=== PATIENT | female | born 1980 | race Two or more races ===

== ENCOUNTER 2017-06-13 07:50 | Emergency (ER) | payer OTHER ==
[~2017-06-13] VITALS: Ht 170.2 cm; Wt 103.4 kg
[2017-06-13 07:53] VITALS: BP 122/87
== END 2017-06-13 10:00 | disposition home or self-care (01) ==
LOC: ED 07:50
DX: S50.812A Abrasion of left forearm, initial encounter (principal); M54.5 Low back pain; E11.9 Type 2 diabetes mellitus without complications; E07.9 Disorder of thyroid, unspecified; Z79.84 Long term (current) use of oral hypoglycemic drugs; Z88.0 Allergy status to penicillin; V49.9XXA Car occupant (driver) (passenger) injured in unspecified traffic accident, initial encounter; W22.10XA Striking against or struck by unspecified automobile airbag, initial encounter; Y93.89 Activity, other specified; Y99.8 Other external cause status; Y92.89 Other specified places as the place of occurrence of the external cause
CPT/HCPCS: Q0092